=== PATIENT | female | born 1995 ===

== ENCOUNTER 2024-08-14 16:03 | Outpatient (REF) | payer BC, SELFPAY ==
--- NOTE | 2024-08-14 10:00 | PAPFT_PTH ---
PATIENT: Ny Travis LOC: [facility]#:[id number] AGE/SX: 28/F ROOM: RE08/14/[address]: Marcel Ling : 1995 BED: DIS: 08/14/2024 SPEC #: [id number] RECD: 08/14/24 18:02 STATUS: GER REQ #: [id number] WAQAR: 08/14/24 10:[address]: Marcel Ling DEPT: [facility] Cytology RECD BY: Soraida Love ENTERED: 08/14/24 18:02 SP TYPE: PAPFT OT DR: Unknown,Unknown Tissues: 1 - CX/ENDOCX FOR PAP SMEARS Procedures: PAP THIN PREP/[facility] Screening Comments: [id number]
== END 2024-08-14 16:04 | disposition home or self-care (01) ==
LOC: NCHCN 16:03
PROVIDERS: Visit Provider Family Medicine
DX: Z12.4 Encounter for screening for malignant neoplasm of cervix (principal)
CPT/HCPCS: 88142